=== PATIENT | male | born 1930 | race Caucasian/White ===

== ENCOUNTER 2021-06-28 08:53 | Observation (INO) | payer BC ==
[2021-06-28 10:34] LABS: BASO % 0.5 % (0-2.0); EOS % 0.3 % (0-4.5); HEMATOCRIT 32.9 % (35.4-49); LYMPH % 18.6 % (8-40); MCHC 33.3 g/dl (32.0-35.9); MEAN CELL VOLUME 93.2 fl (80-96); MEAN PLT VOLUME 7.6 fl (7.5-11.1); MONO % 8.6 % (3.8-10.2); PLATELET COUNT 173 10^3/uL (134-434); RBC 3.53 M/mm3 (4.00-5.60)
[2021-06-28 10:42] LABS: INR 2.64 (0.83-1.09); PROTHROMBIN TIME (PATIENT) 30.7 SEC (9.7-13.0)
[2021-06-28 10:44] LABS: ACTIVATED PTT 39.3 SECONDS (25.2-36.5)
[2021-06-28 11:12] LABS: ALBUMIN 3.8 g/dl (3.4-5.0); BILIRUBIN,TOTAL 0.7 mg/dL (0.2-1); BLOOD UREA NITROGEN 20.2 mg/dL (7-18); CALCIUM 8.8 mg/dL (8.5-10.1); CREATININE 0.8 mg/dL (0.55-1.3); TOT PROT 7.2 g/dl (6.4-8.2)
[2021-06-28 12:27] LABS: N-TERMINAL BNP 472.5 pg/ml (5-450)
[2021-06-28] MEDS ORDERED: QUEtiapine FUMARATE 25 MG TABLET PO ONE (12:31)
[2021-06-28] MEDS ORDERED: QUEtiapine FUMARATE 25 MG TABLET ONE (12:38)
[2021-06-28 13:26] LABS: PH,URINE 8.5 (5.0-8.0); URINE APPEARANCE CLEAR; URINE BILIRUBIN NEGATIVE (NEGATIVE); URINE COLOR YELLOW; URINE GLUCOSE (UA) NEGATIVE (NEGATIVE); URINE KETONE TRACE (NEGATIVE); URINE LEUK ESTERASE NEGATIVE (NEGATIVE); URINE NITRITE NEGATIVE (NEGATIVE); URINE PROTEIN NEGATIVE (NEGATIVE)
[2021-06-28] MEDS ORDERED: HALOPERIDOL LACTATE 5 MG/ML IM ONE (14:12)
[2021-06-28] MEDS ORDERED: HALOPERIDOL LACTATE 5 MG/ML ONE (14:21)
[2021-06-28] MEDS ORDERED: LORazepam 2 MG/ML SDV VIAL IVPUSH ONE ×2 (16:09→18:45)
[2021-06-28] MEDS: ATORVASTATIN CA 10 MG TABLET (FP) PO SCH (23:13)
[2021-06-29 00:23] VITALS: BMI 25.9
[2021-06-29] MEDS ORDERED: OLANZapine 2.5 MG TABLET PO ONE (03:21)
[2021-06-29] MEDS ORDERED: MELATONIN 1 MG TABLET PO ONE (03:34)
[2021-06-29] MEDS ORDERED: ARIPiprazole 2 MG TABLET PO ONE (03:36)
[2021-06-29] MEDS ORDERED: ENOXAPARIN NA (PORCINE) 40 MG/0.4 ML DISP.SYRIN SQ SCH (10:00)
[2021-06-29] MEDS: ASPIRIN COATED 81 MG TABLET.EC PO SCH (12:02)
[2021-06-29] MEDS: amLODIPine BESYLATE 5 MG TABLET (FP) PO SCH (12:02)
[2021-06-29] MEDS: WARFARIN NA 3 MG TABLET PO SCH (18:06)
[2021-06-29] MEDS ORDERED: HALOPERIDOL LACTATE 5 MG/ML IM PRN (20:33)
[2021-06-29] MEDS: ATORVASTATIN CA 10 MG TABLET (FP) PO SCH (21:41)
[2021-06-29] MEDS ORDERED: OLANZapine 5 MG TABLET PO SCH (22:00)
[2021-06-30] MEDS ORDERED: MELATONIN 1 MG TABLET PO ONE (04:29)
[2021-06-30] MEDS ORDERED: HALOPERIDOL LACTATE 5 MG/ML IM ONE ×2 (08:24→15:14)
[2021-06-30] MEDS: ASPIRIN COATED 81 MG TABLET.EC PO SCH (09:10)
[2021-06-30] MEDS: amLODIPine BESYLATE 5 MG TABLET (FP) PO SCH (09:10)
[2021-06-30 10:51] LABS: BASO % 0.2 % (0-2.0); LYMPH % 14.2 % (8-40); MCH 31.9 pg (25.7-33.7); MCHC 34.4 g/dl (32.0-35.9); MEAN CELL VOLUME 92.7 fl (80-96); MEAN PLT VOLUME 7.5 fl (7.5-11.1); MONO % 9.5 % (3.8-10.2); NEUT % 76.1 % (42.8-82.8); PLATELET COUNT 170 10^3/uL (134-434); RBC 3.45 M/mm3 (4.00-5.60); RDW 15.1 % (11.9-15.9); WHITE BLOOD COUNT 4.6 K/mm3 (4.0-10.0)
[2021-06-30 11:01] LABS: INR 2.14 (0.83-1.09); PROTHROMBIN TIME (PATIENT) 24.8 SEC (9.7-13.0)
[2021-06-30 11:07] LABS: CALCIUM 8.8 mg/dL (8.5-10.1)
[2021-06-30 11:08] LABS: ALBUMIN 3.5 g/dl (3.4-5.0); BLOOD UREA NITROGEN 11.8 mg/dL (7-18)
[2021-06-30 11:11] LABS: CREATININE 0.7 mg/dL (0.55-1.3)
[2021-06-30 11:12] LABS: BILIRUBIN,TOTAL 1.3 mg/dL (0.2-1)
[2021-06-30 11:13] LABS: TOT PROT 6.6 g/dl (6.4-8.2)
[2021-06-30] MEDS: WARFARIN NA 3 MG TABLET PO SCH (17:32)
[2021-06-30] MEDS: OLANZapine 10 MG TABLET PO SCH (21:49)
[2021-06-30] MEDS: LORazepam 1 MG TABLET PO SCH (21:49)
[2021-06-30] MEDS: ATORVASTATIN CA 10 MG TABLET (FP) PO SCH (21:49)
[2021-06-30] MEDS ORDERED: LORazepam 0.5 MG TABLET PO SCH (22:00)
[2021-07-01] MEDS: amLODIPine BESYLATE 5 MG TABLET (FP) PO SCH (10:12)
[2021-07-01] MEDS: LORazepam 1 MG TABLET PO SCH (10:12)
[2021-07-01] MEDS: ASPIRIN COATED 81 MG TABLET.EC PO SCH (10:12)
[2021-07-01] MEDS ORDERED: HALOPERIDOL LACTATE 5 MG/ML IM PRN (10:15)
[2021-07-01] MEDS ORDERED: QUEtiapine FUMARATE 25 MG TABLET PO SCH (10:15)
[2021-07-01] MEDS: WARFARIN NA 3 MG TABLET PO SCH (17:30)
[2021-07-01] MEDS: clonazePAM 0.5 MG TABLET PO PRN (17:40)
[2021-07-01] MEDS: ATORVASTATIN CA 10 MG TABLET (FP) PO SCH (21:31)
[2021-07-01] MEDS: MEMANTINE HCL 5 MG TABLET (UD) PO SCH (21:31)
[2021-07-01] MEDS: OLANZapine 10 MG TABLET PO SCH (21:31)
[2021-07-01] MEDS ORDERED: clonazePAM 0.5 MG TABLET PO SCH (22:00)
[2021-07-02] MEDS: clonazePAM 0.5 MG TABLET PO PRN (08:59)
[2021-07-02] MEDS: amLODIPine BESYLATE 5 MG TABLET (FP) PO SCH (09:02)
[2021-07-02] MEDS: ESCITALOPRAM OXALATE 10 MG TABLET PO SCH (09:02)
[2021-07-02] MEDS: ASPIRIN COATED 81 MG TABLET.EC PO SCH (09:02)
[2021-07-02] MEDS: MEMANTINE HCL 5 MG TABLET (UD) PO SCH (09:03)
[2021-07-02 09:44] LABS: INR 2.34 (0.83-1.09); PROTHROMBIN TIME (PATIENT) 27.1 SEC (9.7-13.0)
[2021-07-02] MEDS: WARFARIN NA 3 MG TABLET PO SCH (17:21)
[2021-07-03] MEDS: clonazePAM 0.5 MG TABLET PO PRN ×2 (00:10→21:07)
[2021-07-03] MEDS: OLANZapine 10 MG TABLET PO SCH ×2 (00:11→21:07)
[2021-07-03] MEDS: ATORVASTATIN CA 10 MG TABLET (FP) PO SCH ×2 (00:11→21:07)
[2021-07-03] MEDS: MEMANTINE HCL 5 MG TABLET (UD) PO SCH ×3 (00:11→21:07)
[2021-07-03] MEDS: ASPIRIN COATED 81 MG TABLET.EC PO SCH (09:17)
[2021-07-03] MEDS: amLODIPine BESYLATE 5 MG TABLET (FP) PO SCH (09:17)
[2021-07-03] MEDS: ESCITALOPRAM OXALATE 10 MG TABLET PO SCH (09:17)
[2021-07-03 11:26] LABS: INR 2.97 (0.83-1.09); PROTHROMBIN TIME (PATIENT) 34.5 SEC (9.7-13.0)
[2021-07-03] MEDS: WARFARIN NA 3 MG TABLET PO SCH (17:08)
[2021-07-04 09:01] LABS: INR 2.87 (0.83-1.09); PROTHROMBIN TIME (PATIENT) 33.3 SEC (9.7-13.0)
[2021-07-04] MEDS: ESCITALOPRAM OXALATE 10 MG TABLET PO SCH (09:50)
[2021-07-04] MEDS: ASPIRIN COATED 81 MG TABLET.EC PO SCH (09:51)
[2021-07-04] MEDS: amLODIPine BESYLATE 5 MG TABLET (FP) PO SCH (09:51)
[2021-07-04] MEDS: MEMANTINE HCL 5 MG TABLET (UD) PO SCH ×2 (09:51→21:20)
[2021-07-04] MEDS: clonazePAM 0.5 MG TABLET PO PRN (15:59)
[2021-07-04] MEDS: WARFARIN NA 3 MG TABLET PO SCH (18:11)
[2021-07-04] MEDS: ATORVASTATIN CA 10 MG TABLET (FP) PO SCH (21:20)
[2021-07-04] MEDS: OLANZapine 10 MG TABLET PO SCH (21:20)
[2021-07-05] MEDS: ESCITALOPRAM OXALATE 10 MG TABLET PO SCH (10:05)
[2021-07-05] MEDS: clonazePAM 0.5 MG TABLET PO PRN ×2 (10:06→22:17)
[2021-07-05] MEDS: amLODIPine BESYLATE 5 MG TABLET (FP) PO SCH (10:06)
[2021-07-05] MEDS: ASPIRIN COATED 81 MG TABLET.EC PO SCH (10:06)
[2021-07-05] MEDS: MEMANTINE HCL 5 MG TABLET (UD) PO SCH ×2 (10:06→22:17)
[2021-07-05] MEDS: WARFARIN NA 3 MG TABLET PO SCH (17:39)
[2021-07-05] MEDS: ATORVASTATIN CA 10 MG TABLET (FP) PO SCH (22:17)
[2021-07-05] MEDS: OLANZapine 5 MG TABLET PO SCH (22:17)
[2021-07-06] MEDS: ASPIRIN COATED 81 MG TABLET.EC PO SCH (09:00)
[2021-07-06] MEDS: clonazePAM 0.5 MG TABLET PO PRN (09:00)
[2021-07-06] MEDS: MEMANTINE HCL 5 MG TABLET (UD) PO SCH ×2 (09:00→21:55)
[2021-07-06] MEDS: ESCITALOPRAM OXALATE 10 MG TABLET PO SCH (09:00)
[2021-07-06] MEDS: amLODIPine BESYLATE 5 MG TABLET (FP) PO SCH (09:08)
[2021-07-06 09:29] LABS: INR 1.07 (0.83-1.09); PROTHROMBIN TIME (PATIENT) 12.3 SEC (9.7-13.0)
[2021-07-06] MEDS ORDERED: WARFARIN NA 3 MG TABLET PO SCH (13:57)
[2021-07-06] MEDS: ATORVASTATIN CA 10 MG TABLET (FP) PO SCH (21:55)
[2021-07-06] MEDS: OLANZapine 5 MG TABLET PO SCH (21:55)
[2021-07-07] MEDS: clonazePAM 0.5 MG TABLET PO PRN (06:57)
[2021-07-07] MEDS: amLODIPine BESYLATE 5 MG TABLET (FP) PO SCH (09:22)
[2021-07-07] MEDS: ESCITALOPRAM OXALATE 10 MG TABLET PO SCH (09:22)
[2021-07-07] MEDS: MEMANTINE HCL 5 MG TABLET (UD) PO SCH ×2 (09:23→21:38)
[2021-07-07] MEDS: ASPIRIN COATED 81 MG TABLET.EC PO SCH (09:23)
[2021-07-07] MEDS ORDERED: ACETAMINOPHEN 325 MG TABLET (FP) PO PRN (13:30)
[2021-07-07 13:37] LABS: INR 3.02 (0.83-1.09); PROTHROMBIN TIME (PATIENT) 35.1 SEC (9.7-13.0)
[2021-07-07] MEDS: OLANZapine 5 MG TABLET PO SCH (21:38)
[2021-07-07] MEDS: ATORVASTATIN CA 10 MG TABLET (FP) PO SCH (21:38)
[2021-07-08] MEDS: amLODIPine BESYLATE 5 MG TABLET (FP) PO SCH (09:38)
[2021-07-08] MEDS: ESCITALOPRAM OXALATE 10 MG TABLET PO SCH (09:38)
[2021-07-08] MEDS: ASPIRIN COATED 81 MG TABLET.EC PO SCH (09:38)
[2021-07-08] MEDS: clonazePAM 0.5 MG TABLET PO PRN (09:39)
[2021-07-08] MEDS: MEMANTINE HCL 5 MG TABLET (UD) PO SCH ×2 (09:39→21:26)
[2021-07-08 12:33] LABS: INR 2.83 (0.83-1.09); PROTHROMBIN TIME (PATIENT) 32.9 SEC (9.7-13.0)
[2021-07-08] MEDS: WARFARIN NA 2 MG TABLET PO SCH (17:58)
[2021-07-08] MEDS: OLANZapine 5 MG TABLET PO SCH (21:26)
[2021-07-08] MEDS: ATORVASTATIN CA 10 MG TABLET (FP) PO SCH (21:26)
[2021-07-09] MEDS: clonazePAM 0.5 MG TABLET PO PRN (09:15)
[2021-07-09] MEDS: ASPIRIN COATED 81 MG TABLET.EC PO SCH (09:15)
[2021-07-09] MEDS: ESCITALOPRAM OXALATE 10 MG TABLET PO SCH (09:15)
[2021-07-09] MEDS: amLODIPine BESYLATE 5 MG TABLET (FP) PO SCH (09:15)
[2021-07-09] MEDS: MEMANTINE HCL 5 MG TABLET (UD) PO SCH (09:15)
[2021-07-09 11:25] LABS: INR 2.38 (0.83-1.09); PROTHROMBIN TIME (PATIENT) 27.6 SEC (9.7-13.0)
[2021-07-09] MEDS: WARFARIN NA 2 MG TABLET PO SCH (17:12)
[2021-07-10] MEDS: ATORVASTATIN CA 10 MG TABLET (FP) PO SCH (01:15)
[2021-07-10] MEDS: OLANZapine 5 MG TABLET PO SCH (01:15)
[2021-07-10] MEDS: MEMANTINE HCL 5 MG TABLET (UD) PO SCH ×2 (01:24→10:47)
[2021-07-10 10:28] LABS: INR 2.58 (0.83-1.09); PROTHROMBIN TIME (PATIENT) 29.9 SEC (9.7-13.0)
[2021-07-10] MEDS: ESCITALOPRAM OXALATE 10 MG TABLET PO SCH (10:46)
[2021-07-10] MEDS: amLODIPine BESYLATE 5 MG TABLET (FP) PO SCH (10:46)
[2021-07-10] MEDS: ASPIRIN COATED 81 MG TABLET.EC PO SCH (10:47)
[2021-07-10 18:48] VITALS: BP 137/79; PULSE 69; TEMP 97.7
== END 2021-07-10 14:00 ==
LOC: JER 08:53 → UNDOADMOB 09:55 → JERBED 09:55 → INTOOBSV 09:55 → JERBED 14:31 → J5S 21:01
PROVIDERS: ADMIT Internal Medicine
PROC: 3E023GC Introduction of Other Therapeutic Substance into Muscle, Percutaneous Approach (ICD-10-PCS; principal; 2021-06-28)
DX: F03.91 Unspecified dementia, unspecified severity, with behavioral disturbance (principal); I25.10 Atherosclerotic heart disease of native coronary artery without angina pectoris; R45.1 Restlessness and agitation; R41.82 Altered mental status, unspecified; E78.5 Hyperlipidemia, unspecified; I11.9 Hypertensive heart disease without heart failure; Z95.2 Presence of prosthetic heart valve; R46.1 Bizarre personal appearance; I48.91 Unspecified atrial fibrillation; Z95.1 Presence of aortocoronary bypass graft; Z79.01 Long term (current) use of anticoagulants; Z29.9 Encounter for prophylactic measures, unspecified
CPT/HCPCS: 36415; 70450-TC; 71045-TC-FY; 80053; 81003; 82550; 82962; 83880; 84484; 85025; 85610; 85730; 87086; 93005; 93010; 96372; 97116-GP; 97162-GP; 99285-25; C9803; G0378; U0003; U0005

== ENCOUNTER 2022-04-17 19:32 | Inpatient (IN) | payer BC, OTHER ==
[2022-04-17 21:55] LABS: BASO % 0.2 % (0-2.0); EOS % 0.3 % (0-4.5); HEMATOCRIT 18.6 % (35.4-49); LYMPH % 25.5 % (8-40); MCH 31.8 pg (25.7-33.7); MCHC 32.3 g/dl (32.0-35.9); MEAN CELL VOLUME 98.5 fl (80-96); MONO % 12.6 % (3.8-10.2); NEUT % 61.4 % (42.8-82.8); PLATELET COUNT 57 10^3/uL (134-434); RBC 1.89 M/mm3 (4.00-5.60); RDW 20.3 % (11.9-15.9); WHITE BLOOD COUNT 4.7 K/mm3 (4.0-10.0)
[2022-04-17 22:03] LABS: INR 2.25 (0.83-1.09); PROTHROMBIN TIME (PATIENT) 26.1 SEC (9.7-13.0)
[2022-04-17 22:06] LABS: ACTIVATED PTT 36.2 SECONDS (25.2-36.5)
[2022-04-17 22:10] LABS: CHLORIDE 103 mmol/L (98-107); SODIUM 144 mmol/L (136-145)
[2022-04-17 22:12] LABS: CALCIUM 8.1 mg/dL (8.5-10.1)
[2022-04-17 22:13] LABS: ALBUMIN 2.5 g/dl (3.4-5.0); ANION GAP 6 MMOL/L (8-16); BLOOD UREA NITROGEN 51.7 mg/dL (7-18); CO2 35 mmol/L (21-32); GLUCOSE,RANDOM 115 mg/dL (74-106); MAGNESIUM 2.4 mg/dL (1.8-2.4)
[2022-04-17 22:16] LABS: CREATININE 1.6 mg/dL (0.55-1.3); SGOT/AST 14 U/L (15-37); SGPT/ALT 13 U/L (13-61)
[2022-04-17] MEDS ORDERED: SODIUM CHLORIDE 0.9% 500 ML INFUS.BAG IV ONE (22:17)
[2022-04-17 22:18] LABS: TOT PROT 6.5 g/dl (6.4-8.2)
[2022-04-17 22:19] LABS: ALK PHOS 70 U/L (45-117)
[2022-04-17 22:24] LABS: BILIRUBIN,TOTAL 0.5 mg/dL (0.2-1)
[2022-04-18 00:03] LABS: TOTAL IRON BINDING CAPACITY 340 ug/dL (250-450)
[2022-04-18 00:04] LABS: IRON SERUM 67 ug/dL (50-175)
[2022-04-18] MEDS ORDERED: FUROSEMIDE 40 MG/4 ML INJECTABLE VIAL IVPUSH ONE (02:19)
[2022-04-18] MEDS ORDERED: FUROSEMIDE 40 MG/4 ML INJECTABLE VIAL ONE (02:45)
[2022-04-18 05:56] LABS: URINE APPEARANCE CLEAR; URINE BILIRUBIN NEGATIVE (NEGATIVE); URINE COLOR YELLOW; URINE GLUCOSE (UA) NEGATIVE (NEGATIVE); URINE KETONE NEGATIVE (NEGATIVE); URINE LEUK ESTERASE NEGATIVE (NEGATIVE); URINE NITRITE NEGATIVE (NEGATIVE); URINE PROTEIN NEGATIVE (NEGATIVE); URINE UROBILINOGEN 0.2 mg/dL (0.2-1.0)
[2022-04-18 05:57] LABS: BASO % 0.3 % (0-2.0); EOS % 0.8 % (0-4.5); HEMATOCRIT 28.9 % (35.4-49); HEMOGLOBIN 9.5 GM/dL (11.7-16.9); LYMPH % 22.2 % (8-40); MCH 30.6 pg (25.7-33.7); MEAN CELL VOLUME 92.9 fl (80-96); MEAN PLT VOLUME 7.7 fl (7.5-11.1); MONO % 11.9 % (3.8-10.2); NEUT % 64.8 % (42.8-82.8); PLATELET COUNT 70 10^3/uL (134-434); RBC 3.12 M/mm3 (4.00-5.60); WHITE BLOOD COUNT 5.6 K/mm3 (4.0-10.0)
[2022-04-18 06:16] LABS: CALCIUM 8.4 mg/dL (8.5-10.1)
[2022-04-18 06:17] LABS: BLOOD UREA NITROGEN 46.9 mg/dL (7-18)
[2022-04-18 06:20] LABS: CREATININE 1.5 mg/dL (0.55-1.3)
[2022-04-18 07:22] LABS: ANISOCYTOSIS 0; MACROCYTOSIS 0; OVALOCYTE 1+
[2022-04-18] MEDS ORDERED: ALBUTEROL SO4 0.083% IH SOL 2.5 MG/3 ML VIAL.NEB. NEB PRN (07:38)
[2022-04-18] MEDS: DIVALPROEX SODIUM 500 MG TABLET E.C. PO SCH ×3 (09:00→16:09)
[2022-04-18] MEDS: ESCITALOPRAM OXALATE 10 MG TABLET PO SCH (09:02)
[2022-04-18] MEDS ORDERED: DIVALPROEX SODIUM 500 MG TABLET E.C. ONE ×2 (09:21→22:57)
[2022-04-18] MEDS ORDERED: ESCITALOPRAM OXALATE 10 MG TABLET ONE (09:21)
[2022-04-18] MEDS ORDERED: ALBUTEROL SO4 0.083% IH SOL 2.5 MG/3 ML VIAL.NEB. NEB ONE (11:30)
[2022-04-18] MEDS ORDERED: ATORVASTATIN CA 10 MG TABLET (FP) ONE (22:57)
[2022-04-18] MEDS ORDERED: MELATONIN 5 MG TABLETS ONE (22:58)
[2022-04-18] MEDS ORDERED: MIRTAZAPINE 15 MG TABLET (FP) ONE (22:58)
[2022-04-18] MEDS: ATORVASTATIN CA 10 MG TABLET (FP) PO SCH (23:09)
[2022-04-18] MEDS: MIRTAZAPINE 15 MG TABLET (FP) PO SCH (23:09)
[2022-04-18] MEDS: MELATONIN 5 MG TABLETS PO SCH (23:09)
[2022-04-19] MEDS: DIVALPROEX SODIUM 500 MG TABLET E.C. PO SCH ×3 (02:36→23:37)
[2022-04-19 09:43] LABS: RETICULOCYTES 3.23 % (0.5-1.5)
[2022-04-19] MEDS: ESCITALOPRAM OXALATE 10 MG TABLET PO SCH ×2 (10:41→10:58)
[2022-04-19] MEDS: ACETAMINOPHEN 325 MG TABLET (FP) PO PRN ×2 (11:33→21:19)
[2022-04-19 12:42] LABS: BASO % 0.2 % (0-2.0); EOS % 0.5 % (0-4.5); HEMATOCRIT 28.3 % (35.4-49); HEMOGLOBIN 9.4 GM/dL (11.7-16.9); LYMPH % 17.5 % (8-40); MCH 30.8 pg (25.7-33.7); MCHC 33.3 g/dl (32.0-35.9); MEAN CELL VOLUME 92.4 fl (80-96); MEAN PLT VOLUME 7.3 fl (7.5-11.1); MONO % 11.6 % (3.8-10.2); NEUT % 70.2 % (42.8-82.8); PLATELET COUNT 83 10^3/uL (134-434); RBC 3.06 M/mm3 (4.00-5.60); RDW 21.1 % (11.9-15.9)
[2022-04-19] MEDS: MELATONIN 5 MG TABLETS PO SCH (21:18)
[2022-04-19] MEDS: QUEtiapine FUMARATE 25 MG TABLET PO SCH (21:19)
[2022-04-19] MEDS: ATORVASTATIN CA 10 MG TABLET (FP) PO SCH (21:19)
[2022-04-19] MEDS: MIRTAZAPINE 15 MG TABLET (FP) PO SCH (21:19)
[2022-04-19] MEDS: clonazePAM 0.5 MG TABLET PO SCH (21:19)
[2022-04-20] MEDS: DIVALPROEX SODIUM 500 MG TABLET E.C. PO SCH ×4 (01:41→21:23)
[2022-04-20] MEDS: clonazePAM 0.5 MG TABLET PO SCH (11:27)
[2022-04-20] MEDS: ESCITALOPRAM OXALATE 10 MG TABLET PO SCH (11:27)
[2022-04-20] MEDS ORDERED: clonazePAM 0.5 MG TABLET PO PRN (13:41)
[2022-04-20] MEDS: MIRTAZAPINE 15 MG TABLET (FP) PO SCH (21:23)
[2022-04-20] MEDS: MELATONIN 5 MG TABLETS PO SCH (21:23)
[2022-04-20] MEDS: ATORVASTATIN CA 10 MG TABLET (FP) PO SCH (21:23)
[2022-04-20] MEDS: QUEtiapine FUMARATE 25 MG TABLET PO SCH (21:23)
[2022-04-21] MEDS: DIVALPROEX SODIUM 500 MG TABLET E.C. PO SCH (06:39)
[2022-04-21] MEDS: ESCITALOPRAM OXALATE 10 MG TABLET PO SCH (10:15)
[2022-04-21 12:12] VITALS: BMI 23.3
[2022-04-21] MEDS: DIVALPROEX SODIUM 250 MG TABLET E.C. PO SCH ×2 (13:56→21:25)
[2022-04-21] MEDS: MELATONIN 5 MG TABLETS PO SCH (21:24)
[2022-04-21] MEDS: QUEtiapine FUMARATE 25 MG TABLET PO SCH (21:24)
[2022-04-21] MEDS: MIRTAZAPINE 15 MG TABLET (FP) PO SCH (21:25)
[2022-04-21] MEDS: ATORVASTATIN CA 10 MG TABLET (FP) PO SCH (21:25)
[2022-04-22] MEDS: DIVALPROEX SODIUM 250 MG TABLET E.C. PO SCH ×3 (06:51→22:17)
[2022-04-22 08:06] LABS: ALBUMIN 2.3 g/dl (3.4-5.0)
[2022-04-22 08:07] LABS: CALCIUM 8.6 mg/dL (8.5-10.1)
[2022-04-22 08:08] LABS: BLOOD UREA NITROGEN 26.6 mg/dL (7-18)
[2022-04-22 08:09] LABS: CREATININE 0.9 mg/dL (0.55-1.3)
[2022-04-22 08:12] LABS: BILIRUBIN,TOTAL 0.8 mg/dL (0.2-1); TOT PROT 6.3 g/dl (6.4-8.2)
[2022-04-22] MEDS ORDERED: QUEtiapine FUMARATE 25 MG TABLET PO SCH (08:24)
[2022-04-22] MEDS: ESCITALOPRAM OXALATE 10 MG TABLET PO SCH ×3 (10:28→13:13)
[2022-04-22 12:32] LABS: BASO % 0.2 % (0-2.0); EOS % 1.4 % (0-4.5); HEMATOCRIT 29.4 % (35.4-49); HEMOGLOBIN 9.8 GM/dL (11.7-16.9); INR 1.36 (0.83-1.09); LYMPH % 28.8 % (8-40); MCH 31.1 pg (25.7-33.7); MCHC 33.3 g/dl (32.0-35.9); MEAN CELL VOLUME 93.3 fl (80-96); MONO % 14.1 % (3.8-10.2); NEUT % 55.5 % (42.8-82.8); PLATELET COUNT 84 10^3/uL (134-434); PROTHROMBIN TIME (PATIENT) 15.7 SEC (9.7-13.0); RBC 3.15 M/mm3 (4.00-5.60); RDW 20.3 % (11.9-15.9); WHITE BLOOD COUNT 4.6 K/mm3 (4.0-10.0)
[2022-04-22] MEDS ORDERED: WARFARIN NA 2.5 MG TABLET PO ONE (18:00)
[2022-04-22] MEDS: MIRTAZAPINE 15 MG TABLET (FP) PO SCH (22:17)
[2022-04-22] MEDS: MELATONIN 5 MG TABLETS PO SCH (22:17)
[2022-04-22] MEDS: ATORVASTATIN CA 10 MG TABLET (FP) PO SCH (22:17)
[2022-04-23] MEDS: DIVALPROEX SODIUM 250 MG TABLET E.C. PO SCH ×2 (07:07→13:15)
[2022-04-23 08:12] LABS: INR 1.4 (0.83-1.09); PROTHROMBIN TIME (PATIENT) 16.2 SEC (9.7-13.0)
[2022-04-23 09:43] VITALS: RESP 18
[2022-04-23] MEDS: ESCITALOPRAM OXALATE 10 MG TABLET PO SCH (10:53)
[2022-04-23 15:57] VITALS: BP 114/60; PULSE 84; TEMP 97.8
== END 2022-04-23 14:47 | DRG 812 ==
LOC: JER 19:32 → JERBED 22:17 → J4W 04-19 06:36
PROVIDERS: ADMIT Internal Medicine; ATTEND Family Medicine
PROC: 30233N1 Transfusion of Nonautologous Red Blood Cells into Peripheral Vein, Percutaneous Approach (ICD-10-PCS; principal; 2022-04-18)
DX: D64.9 Anemia, unspecified (principal); N17.9 Acute kidney failure, unspecified; J90 Pleural effusion, not elsewhere classified; I25.10 Atherosclerotic heart disease of native coronary artery without angina pectoris; E78.5 Hyperlipidemia, unspecified; R55 Syncope and collapse; M17.11 Unilateral primary osteoarthritis, right knee; I48.91 Unspecified atrial fibrillation; I11.0 Hypertensive heart disease with heart failure; I50.9 Heart failure, unspecified; G30.9 Alzheimer's disease, unspecified; F02.80 Dementia in other diseases classified elsewhere, unspecified severity, without behavioral disturbance, psychotic disturbance, mood disturbance, and anxiety; S80.01XA Contusion of right knee, initial encounter; W18.30XA Fall on same level, unspecified, initial encounter; Y92.098 Other place in other non-institutional residence as the place of occurrence of the external cause; Z95.1 Presence of aortocoronary bypass graft
CPT/HCPCS: 0241U-QW; 36415; 36430; 70450-TC; 71045-TC-FY; 72125-TC; 72131-TC; 73030-TC-LT-FY; 73030-TC-RT-FY; 73521-TC-FY; 73552-TC-LT-FY; 73552-TC-RT-FY; 73562-TC-LT-FY; 73562-TC-RT-FY; 73590-TC-LT-FY; 73590-TC-RT-FY; 73700-TC-RT; 80048; 80053; 81003; 82272; 82607; 82728; 82746; 83540; 83550; 83615; 83735; 83880; 84155; 84165; 84484; 85025; 85045; 85610; 85730; 86850; 86880; 86900; 86901; 86922; 87086; 93005; 93010; 93306-TC; 99285-25; C9803-CS; P9058; U0003; U0005

== ENCOUNTER 2022-04-27 04:15 | Emergency (ER) | payer OTHER ==
[2022-04-27 04:45] VITALS: RESP 18; TEMP 98; BMI 31.2
[2022-04-27 06:37] LABS: BASO % 0.4 % (0-2.0); EOS % 0.6 % (0-4.5); HEMATOCRIT 27.6 % (35.4-49); HEMOGLOBIN 9.1 GM/dL (11.7-16.9); LYMPH % 21.6 % (8-40); MCH 31.1 pg (25.7-33.7); MCHC 32.8 g/dl (32.0-35.9); MEAN CELL VOLUME 94.8 fl (80-96); MEAN PLT VOLUME 7.1 fl (7.5-11.1); MONO % 12.1 % (3.8-10.2); NEUT % 65.3 % (42.8-82.8); PLATELET COUNT 75 10^3/uL (134-434); RBC 2.92 M/mm3 (4.00-5.60); RDW 20.1 % (11.9-15.9); WHITE BLOOD COUNT 5.4 K/mm3 (4.0-10.0)
[2022-04-27 06:44] LABS: INR 1.11 (0.83-1.09); PROTHROMBIN TIME (PATIENT) 12.8 SEC (9.7-13.0)
[2022-04-27 06:47] LABS: ACTIVATED PTT 32.9 SECONDS (25.2-36.5)
[2022-04-27 07:01] LABS: CALCIUM 8.9 mg/dL (8.5-10.1)
[2022-04-27 07:02] LABS: ALBUMIN 2.5 g/dl (3.4-5.0); BLOOD UREA NITROGEN 38.2 mg/dL (7-18); MAGNESIUM 2.2 mg/dL (1.8-2.4)
[2022-04-27 07:07] LABS: BILIRUBIN,TOTAL 0.8 mg/dL (0.2-1); TOT PROT 6.8 g/dl (6.4-8.2)
[2022-04-27 16:27] VITALS: BP 140/68; PULSE 64
== END 2022-04-27 16:39 | disposition home or self-care (01) ==
LOC: JER 04:15
DX: S00.81XA Abrasion of other part of head, initial encounter (principal); W19.XXXA Unspecified fall, initial encounter
CPT/HCPCS: 0241U-QW; 36415; 70450-TC; 72125-TC; 80053; 83735; 84484; 85025; 85610; 85730; 93005; 93010; 99285-25